=== PATIENT | male | born 1975 | race Caucasian/White ===

== ENCOUNTER 2024-10-10 12:49 | Emergency (ER) | payer SELFPAY ==
[2024-10-10 12:49] VITALS: BMI 27.1
[2024-10-10 12:53] VITALS: BP 142/92
--- NOTE | 2024-10-10 14:07 | ED.GENMED ---
History of Present Illness
General
Chief Complaint: Skin Surface Trauma
Source: patient
Exam Limitations: none
Time Seen by Provider: 10/10/24 13:41
Nursing documentation reviewed up to this point in time: agreed with
History of Present Illness
History of Present Illness:
Patient is a 49-year-old male that presents with foreign body to his right index finger. 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 He
is right-hand dominant. He is unsure was last tetanus.
Past History
Past History
ED Past Medical History: None
ED Past Surgical History: None
Social History
Tobacco: Non-smoker
Phy Exam
General Physical Exam
General Presentation: no apparent distress
General age: appears stated age
General Skin: warm and dry
General Habitus: normal
General Mental: alert
General Hydration: appears well hydrated
Neurological Exam
Neurological Exam: alert and oriented x3
Musculoskeletal Exam
Musculoskeletal Exam: other (Right index finger dorsal aspect with visible foreign body under skin of proximal phalanx; normal cap refill normal distal sensation normal flexion extension)
Skin Exam
Skin Exam: normal color and warm/dry
Psychiatric Exam
Psychiatric Exam: normal mood/affect
Course
Orders/Labs/Results
Orders:
Orders
10/10/24 14:05
Tetanus/Diphth/Acelpertussis [Adacel] 0.5 ml IM .ONCE ONE
Finger(s)/Thumb 2 View Rt [CR Finger(s)/thumb Min 2 Vw Rt] Urgent
Comment:
Reason For Exam: foreign body index finger
Indicate Which Finger:: Index Finger
10/10/24 14:06
Cephalexin Monohydrate [Keflex] 500 mg PO NOW STA
Vital Signs
Initial and Last Documented VS:
Initial Vital Signs
Temp Pulse Resp BP Pulse Ox
98.5 F 98 20 142/92 98
10/10/24 12:53 10/10/24 12:53 10/10/24 12:53 10/10/24 12:53 10/10/24 12:53
Last Documented Vital Signs
Temp Pulse Resp BP Pulse Ox
98.5 F 98 20 142/92 98
10/10/24 12:53 10/10/24 12:53 10/10/24 12:53 10/10/24 12:53 10/10/24 14:08
Procedures
Foreign Body Removal-Skin
Wound explored and foreign body removed?: Yes
Anesthesia: other (Digital block lidocaine 1% without epinephrine)
Foreign body removed using: incision
Foreign body removed: completely (2 separate pieces of wood successfully removed)
MDM/Problems Addressed
Differential Diagnosis Includes:
Not limited to foreign body
MDM/Problems Addressed:
As documented patient presented with foreign body to right index finger from old Cedarwood from a sauna. I was able to successfully remove 2 separate pieces which came out intact. After foreign body removal wounds were irrigated with copious
anne normal saline. These wounds do not require closure. Will leave open to drain. I did review with patient however the risk of retained foreign body and risk of infection. He is to closely follow-up with hand surgery in the next several days
and take antibiotics as prescribed. He is to return if any worsening of symptoms.
Strict return precautions given
*Radiology
Radiology exam reviewed: radiology read reviewed
*Pulse Oximetry
SaO2: 98
Oxygen Mode of Delivery: Room air
Patient hypoxic: no
*Critical Care Note
Total Time (30-74mins, 75-104mins- exclusive of procedures): Not Applicable
ED Attending Note
-
Portions of this chart may have been created with voice recognition software.� Occasional wrong word or��sound alike� substitutions may have occurred due to the inherent limitations of voice recognition software.
Discharge Plan
Departure
Patient Disposition: Home (Routine Discharge)
Date of Disposition: 10/10/24
Time of Disposition: 15:15
Patient with high blood pressure during this ER visit?: Yes
Condition: Fair
Covid-19: Not Applicable
Discharge Problem:
foreign body to finger
Instructions: Foreign Body in Skin ED, BLOOD PRESSURE
Prescriptions:
New
cephalexin 500 mg capsule
500 mg PO Q6H Qty: 20 0RF
Referrals:
NONE,* [Family Provider, Internal Medicine]
Megan Mullins NP [Non-Admitting Privileges, General]
Octavio Mullins MD [Active, Orthopedics]
Jericho Giordano MD [Active, Orthopedics]
Activity Restrictions/Additional Instructions:
As discussed two separate pieces of wood were removed from your index finger. Also as discussed there is a risk of possible retained foreign body and risk of infection. It is important that you closely monitor the area. Return if any signs of
infection, if increased pain swelling redness drainage red streaking fever or chills. Wash twice a day with soap and water allowed to drain cover with nonstick dressing. Antibiotic as directed for the next 5 days to prevent infection. This
medication was sent to your pharmacy. Please follow-up with hand surgeon in the next several days. Call today to make an appointment.
Interventions
Interventions:
*Risk Screen - Suicide Last Done: 10/10/24 12:53
*General Assessment Last Done: 10/10/24 13:29
*Neglect/Abuse Screening Last Done: 10/10/24 12:53
*ED- Fall Risk Assessment Last Done: 10/10/24 13:29
*ED COVID-19 Vaccine History Last Done: 10/10/24 12:53
ED-Skin Assessment Last Done: 10/10/24 13:29
Discharge Date and Time
Print Language: MAURITIAN
[2024-10-10] MEDS: KEFLEX 500 MG PO (14:14)
[2024-10-10] MEDS: ADACEL 0.5 ML IM (14:14)
[2024-10-10 15:21] VITALS: BP 128/74
== END 2024-10-10 15:29 | disposition home or self-care (01) ==
LOC: EMR 12:49
PROVIDERS: EMERGENCY PHYSICIAN Emergency Medicine
DX: S60.450A Superficial foreign body of right index finger, initial encounter (principal); W45.8XXA Other foreign body or object entering through skin, initial encounter; Z23 Encounter for immunization
CPT/HCPCS: 99283; 10120; 90471; 73140; 90715